=== PATIENT | female | born 1995 | race Caucasian/White ===

== ENCOUNTER 2018-08-12 17:12 | Inpatient (IN) | payer OTHER ==
--- NOTE | 2018-08-12 21:13 | HP ---
Admission ROS [facility] Chief Complaint: Seeking admission to Rehab Allergies/Adverse Reactions: Allergies Allergy/AdvReac Type Severity Reaction Status Date / Time Sulfa (Sulfonamide Allergy Verified 08/12/18 20:36 Antibiotics) History of Present Illness: 22 years old female with 9 years of heroin dependence is seeking admission to Rehab. This is her first inpatient admission to Rehab. Patient has medical history of anxiety, Hep. C, depression and bipolar disorder. She denies suicide attempt and suicidal ideation at this time. Patient is on methadone 70mg tablet oral daily with [facility] MMTP. Last day medicated 08/11/2018. Patient is court mandated for 28 days of rehabilitation services by [facility]. Exam Limitations: No Limitations - Ebola screening Have you traveled outside of the country in the last 21 days: No (N) Have you had contact with anyone from an Ebola affected area: No Have you been sick,other than usual withdrawal symptoms: No Do you have a fever: No - Review of Systems Constitutional: No Symptoms Reported EENT: reports: No Symptoms Reported Respiratory: reports: No Symptoms reported Cardiac: reports: No Symptoms Reported GI: reports: No Symptoms Reported : reports: No Symptoms Reported Musculoskeletal: reports: No Symptoms Reported Integumentary: reports: No Symptoms Reported Neuro: reports: No Symptoms reported Endocrine: reports: No Symptoms Reported Hematology: reports: No Symptoms Reported Psychiatric: reports: No Sypmtoms Reported, Orientated x3 Other Systems: Reviewed and Negative Patient History - Patient Medical History Hx Anemia: No Hx Asthma: No Hx Chronic Obstructive Pulmonary Disease (COPD): No Hx Cancer: No Hx Cardiac Disorders: No Hx Congestive Heart Failure: No Hx Hypertension: No Hx Hypercholesterolemia: No Hx Pacemaker: No HX Cerebrovascular Accident: No Hx Seizures: No Hx Dementia: No Hx Diabetes: No Hx Gastrointestinal Disorders: No Hx Liver Disease: No Hx Genitourinary Disorders: No Hx Sexually Transmitted Disorders: No Hx Renal Disease (ESRD): No Hx Thyroid Disease: No Hx Human Immunodeficiency Virus (HIV): No (Negative 2017) Hx Hepatitis C: No Hx Depression: Yes Hx Suicide Attempt: No (Denies suicidal ideation at tis time) Hx Bipolar Disorder: Yes (Not on medication) Hx Schizophrenia: No Other Medical History: Anxiety - Not on medication - Patient Surgical History Past Surgical History: No - PPD History Previous Implant?: Yes Documented Results: Negative w/o proof PPD to be Administered?: Yes - Reproductive History Patient is a Female of Child Bearing Age (11 -55 yrs old): Yes Last Menstrual Period: 05/28/18 Patient : No - Smoking Cessation Smoking history: Current every day smoker Have you smoked in the past 12 months: Yes Aproximately how many cigarettes per day: 20 Hx Chewing Tobacco Use: No Initiated information on smoking cessation: Yes 'Breaking Loose' booklet given: 08/12/18 - Substance & Tx. History Hx Alcohol Use: No Hx Substance Use: Yes Substance Use Type: Cocaine, Heroin Hx Substance Use Treatment: Yes ([facility]) - Substances Abused Heroin Route: Injection Frequency: Daily Amount used: 1 BUNDLE Age of first use: 13 Date of Last Use: 08/10/18 Family Disease History - Family Disease History Family History: Denies Admission Physical Exam [facility] - Vital Signs Vital Signs: Vital Signs - 24 hr 08/12/18 17:28 Temperature 97.7 F Pulse Rate 88 Respiratory 18 Rate Blood Pressure 124/98 - Physical General Appearance: Yes: No Apparent Distress HEENTM: Yes: EOMI, Normal ENT Inspection, Normocephalic, Normal Voice, FILIBERTO Respiratory: Yes: Lungs Clear, Normal Breath Sounds, No Respiratory Distress Neck: Yes: Supple Breast: Yes: Breast Exam Deferred Cardiology: Yes: Regular Rhythm, Regular Rate Abdominal: Yes: Normal Bowel Sounds Genitourinary: Yes: Within Normal Limits Back: Yes: Normal Inspection Musculoskeletal: Yes: Within Normal Limits Extremities: Yes: Normal Inspection Neurological: Yes: corsetier II-XII NML intact, Alert, Normal Mood/Affect Integumentary: Yes: Warm Lymphatic: Yes: Within Normal Limits - Diagnostic (1) Heroin dependence Current Visit: Yes Status: Chronic (2) Nicotine dependence Current Visit: Yes Status: Chronic Qualifiers: Nicotine product type: cigarettes Substance use status: uncomplicated Qualified Code(s): F17.210 - Nicotine dependence, cigarettes, uncomplicated (3) Anxiety Current Visit: Yes Status: Chronic (4) Depression Current Visit: Yes Status: Acute Qualifiers: Depression Type: unspecified Qualified Code(s): F32.9 - Major depressive disorder, single episode, unspecified (5) Hep C w/o coma, chronic Current Visit: Yes Status: Chronic Cleared for Admission [facility] - Detox or Rehab [facility] Level of Care: Observation Bed Claeared for Rehab Admission: Yes [facility] Breath Alcohol Content Breath Alcohol Content: 0 Urine Pregancy Test - Result Urine Test Results: Negative- NO Line Present Urine Drug Screen - Results Drug Screen Negative: No Urine Drug Screen Results: FAHAD-Cocaine, MTD-Methadone Inpatient Rehab Admission - Initial Determination Are CD services needed?: Yes Free of communicable disease: Yes Not in need of hospitalization: Yes - Rehab Admission Criteria Previous failed treatment: Yes Poor recovery environment: Yes Comorbidities: Yes Lacks judgement: No Patient is meeting Inpatient Rehab admission criteria:: Yes
[2018-08-12] MEDS ORDERED: LOPERAMIDE HCL 2 MG CAPSULE PO PRN (21:22)
[2018-08-12] MEDS ORDERED: P-EPHED 60MG/TRIPROLIDI 2.5MG TABLET PO PRN (21:22)
[2018-08-12] MEDS ORDERED: ACETAMINOPHEN 325 MG TABLET (FP) PO PRN (21:22)
[2018-08-12] MEDS ORDERED: guaiFENesin/D-METHORPHAN HB 10 ML UNIT-DOSE CUPS PO PRN (21:22)
[2018-08-12] MEDS ORDERED: MAGNESIUM CITRATE 300 ML BOTTLE PO PRN (21:22)
[2018-08-12] MEDS ORDERED: MAG HYDROX/AL HYDROX/SIMETH 30 ML UNIT-DOSE CUP PO PRN (21:22)
[2018-08-12] MEDS: THIAMINE HCL 100 MG TABLET (FP) PO SCH (22:29)
[2018-08-13 01:07] LABS: URINE APPEARANCE TURBID; URINE BILIRUBIN NEGATIVE (<2.0 mg/dL); URINE COLOR YELLOW; URINE GLUCOSE (UA) NEGATIVE (NEGATIVE); URINE KETONE NEGATIVE (NEGATIVE); URINE LEUK ESTERASE NEGATIVE (NEGATIVE); URINE NITRITE NEGATIVE (NEGATIVE); URINE PROTEIN NEGATIVE (NEGATIVE)
[2018-08-13] MEDS ORDERED: METHADONE HCL 10 MG TABLET PO SCH (08:00)
[2018-08-13] MEDS ORDERED: METHADONE HCL 10 MG TABLET ONE (08:51)
[2018-08-13] MEDS ORDERED: METHADONE HCL 40 MG DISPERSABLE TABLET ONE (08:51)
[2018-08-13] MEDS: METHADONE 40 MG, METHADONE 30 MG PO SCH (08:57)
[2018-08-13] MEDS: NICOTINE 14 MG/24 HOURS TOPICAL PATCH TD SCH (09:00)
[2018-08-13] MEDS: PRENATAL VITAMINS W/ FOLIC ACID TABLET (FP) PO SCH (09:00)
--- NOTE | 2018-08-13 09:23 | EKG ---
Test Reason : Blood Pressure : / mmHG Vent. Rate : 054 BPM Atrial Rate : 054 BPM P-R Int : 116 ms QRS Dur : 088 ms QT Int : 452 ms P-R-T Axes : 010 064 060 degrees QTc Int : 428 ms SINUS BRADYCARDIA OTHERWISE NORMAL ECG NO PREVIOUS ECGS AVAILABLE Confirmed by DEVORA SEBASTIAN, TROY ([id number]) on 08/13/2018 9:23:03 AM Referred By: Confirmed By:TROY LOZOYA MD
[2018-08-13 10:38] LABS: HEMATOCRIT 41.5 % (32.4-45.2); HEMOGLOBIN 13.3 GM/dL (10.7-15.3); MCH 27.7 pg (25.7-33.7); MCHC 32.1 g/dl (32.0-36.0); MEAN CELL VOLUME 86.2 fl (80-96); MEAN PLT VOLUME 9.2 fl (7.5-11.1); PLATELET COUNT 273 K/MM3 (134-434); RBC 4.82 M/mm3 (3.60-5.2); RDW 14.2 % (11.6-15.6); WHITE BLOOD COUNT 5.9 K/mm3 (4.0-10.0)
[2018-08-13 10:41] LABS: ALBUMIN 3.8 g/dl (3.4-5.0); ALK PHOS 64 U/L (45-117); ANION GAP 5 MMOL/L (8-16); BILIRUBIN,TOTAL 0.5 mg/dL (0.2-1); BLOOD UREA NITROGEN 15 mg/dL (7-18); CALCIUM 9.4 mg/dL (8.5-10.1); CHLORIDE 105 mmol/L (98-107); CO2 31 mmol/L (21-32); CREATININE 0.9 mg/dL (0.55-1.3); GLUCOSE,RANDOM 77 mg/dL (74-106); POTASSIUM 4.5 mmol/L (3.5-5.1); SGOT/AST 19 U/L (15-37); SGPT/ALT 16 U/L (13-61); SODIUM 141 mmol/L (136-145)
[2018-08-13] MEDS: THIAMINE HCL 100 MG TABLET (FP) PO SCH (21:34)
[2018-08-13] MEDS: IBUPROFEN 400 MG TABLET (FP) PO PRN (21:35)
[2018-08-13] MEDS: MELATONIN 5 MG TABLETS PO PRN (22:07)
[2018-08-14] MEDS ORDERED: METHADONE HCL 10 MG TABLET ONE (06:31)
[2018-08-14] MEDS ORDERED: METHADONE HCL 40 MG DISPERSABLE TABLET ONE (06:31)
[2018-08-14] MEDS: METHADONE 40 MG, METHADONE 30 MG PO SCH (06:32)
[2018-08-14] MEDS: NICOTINE 14 MG/24 HOURS TOPICAL PATCH TD SCH (10:04)
[2018-08-14] MEDS: PRENATAL VITAMINS W/ FOLIC ACID TABLET (FP) PO SCH (10:04)
[2018-08-14] MEDS: IBUPROFEN 400 MG TABLET (FP) PO PRN (10:05)
--- NOTE | 2018-08-14 10:43 | HP ---
Psychiatrist Admission - Data Date of interview: 08/14/18 Admission source: Court mandated Identifying data: This si the first admission to [address] [place] [address] for this 22 years old single female childless,resides with boyfriend,supported by boyfriend. Medical History: Hep C. Psychiatric History: Patient reports first contact with psychiatrist in to address anxiety,depressed mood when her parents got .She was started psychotherpay on and off.Patient was placed on medications in her yearly while being in outpatient drug rehabilitation program.She was on Vistaril, Neurontin ,Seroquel,Trazodone.No psychiatric hospitalizations,no suicidal attempts reported.No psychiatric OPD care ,obtains psychotropic medications from her Family Dr:Trazodone 50 mg po hs,Neurontin 400 mg po bid,Seroquel 50 mg po hs. Physical/Sexual Abuse/Trauma History: denies Vital Signs: Vital Signs - 24 hr 08/14/18 08/14/18 08/14/18 00:30 03:30 07:24 Temperature 97.4 F L Pulse Rate 59 L Respiratory 18 18 16 Rate Blood Pressure 104/67 Allergies/Adverse Reactions: Allergies Allergy/AdvReac Type Severity Reaction Status Date / Time Sulfa (Sulfonamide Allergy Verified 08/12/18 20:36 Antibiotics) Date of last physical exam: 08/12/18 Concur with the findings of this exam: Yes - Substance Abuse/Tx History Hx Alcohol Use: Yes (socially) Hx Substance Use: Yes (heroin since 16 yo(IV),MMTP 70 mg,cocaine since 17 yo) Substance Use Type: Cocaine, Heroin Hx Substance Use Treatment: Yes (this is her first inpatient rehab) Mental Status Exam - Mental Status Exam Alert and Oriented to: Time, Place, Person Cognitive Function: Grossly Intact Patient Appearance: Well Groomed Mood: Sad, Anxious Affect: Mood Congruent, Labile Patient Behavior: Cooperative Speech Pattern: Clear Voice Loudness: Normal Thought Process: Goal Oriented Thought Disorder: Not Present Hallucinations: Denies Suicidal Ideation: Denies Homicidal Ideation: Denies Insight/Judgement: Fair Sleep: Fair Appetite: Good Muscle strength/Tone: Normal Gait/Station: Normal Psychiatric Findings - Problem List ([place] 1, 2,3) (1) Hep C w/o coma, chronic Current Visit: Yes Status: Chronic (2) Heroin dependence Current Visit: Yes Status: Chronic (3) Nicotine dependence Current Visit: Yes Status: Chronic Qualifiers: Nicotine product type: cigarettes Substance use status: uncomplicated Qualified Code(s): F17.210 - Nicotine dependence, cigarettes, uncomplicated (4) Cocaine dependence Current Visit: Yes Status: Chronic (5) Substance induced mood disorder Current Visit: Yes Status: Acute - Initial Treatment Plan Initial Treatment Plan: Restart current medications as per plan.Will monitor progress.
[2018-08-14] MEDS: GABAPENTIN 400 MG CAPSULE (FP) PO SCH ×2 (11:49→21:35)
[2018-08-14] MEDS: hydrOXYzine PAMOATE 50 MG CAPSULE (FP) PO PRN (14:12)
[2018-08-14] MEDS: THIAMINE HCL 100 MG TABLET (FP) PO SCH (21:34)
[2018-08-14] MEDS: QUEtiapine FUMARATE 50 MG TABLET PO SCH (21:35)
[2018-08-15] MEDS ORDERED: METHADONE HCL 40 MG DISPERSABLE TABLET ONE (02:45)
[2018-08-15] MEDS ORDERED: METHADONE HCL 10 MG TABLET ONE (02:45)
[2018-08-15] MEDS: METHADONE 40 MG, METHADONE 30 MG PO SCH (06:43)
[2018-08-15] MEDS: NICOTINE 14 MG/24 HOURS TOPICAL PATCH TD SCH (09:55)
[2018-08-15] MEDS: PRENATAL VITAMINS W/ FOLIC ACID TABLET (FP) PO SCH (09:56)
[2018-08-15] MEDS: GABAPENTIN 400 MG CAPSULE (FP) PO SCH ×2 (09:56→21:29)
[2018-08-15] MEDS: hydrOXYzine PAMOATE 50 MG CAPSULE (FP) PO PRN ×2 (14:27→20:05)
[2018-08-15] MEDS: QUEtiapine FUMARATE 50 MG TABLET PO SCH (21:29)
[2018-08-15] MEDS: THIAMINE HCL 100 MG TABLET (FP) PO SCH (21:30)
[2018-08-16] MEDS ORDERED: METHADONE HCL 40 MG DISPERSABLE TABLET ONE (03:10)
[2018-08-16] MEDS ORDERED: METHADONE HCL 10 MG TABLET ONE (03:10)
[2018-08-16] MEDS: METHADONE 40 MG, METHADONE 30 MG PO SCH (06:57)
[2018-08-16] MEDS: hydrOXYzine PAMOATE 50 MG CAPSULE (FP) PO PRN ×3 (07:49→19:41)
[2018-08-16] MEDS: NICOTINE 14 MG/24 HOURS TOPICAL PATCH TD SCH (09:55)
[2018-08-16] MEDS: PRENATAL VITAMINS W/ FOLIC ACID TABLET (FP) PO SCH (09:55)
[2018-08-16] MEDS: GABAPENTIN 400 MG CAPSULE (FP) PO SCH ×2 (09:55→21:24)
[2018-08-16] MEDS: QUEtiapine FUMARATE 50 MG TABLET PO SCH (21:24)
[2018-08-16] MEDS: THIAMINE HCL 100 MG TABLET (FP) PO SCH (21:24)
[2018-08-17] MEDS ORDERED: METHADONE HCL 10 MG TABLET ONE (03:12)
[2018-08-17] MEDS ORDERED: METHADONE HCL 40 MG DISPERSABLE TABLET ONE (03:12)
[2018-08-17] MEDS: METHADONE 40 MG, METHADONE 30 MG PO SCH (07:13)
[2018-08-17] MEDS: hydrOXYzine PAMOATE 50 MG CAPSULE (FP) PO PRN ×3 (08:33→20:28)
[2018-08-17] MEDS: GABAPENTIN 400 MG CAPSULE (FP) PO SCH ×2 (09:44→21:40)
[2018-08-17] MEDS: NICOTINE 14 MG/24 HOURS TOPICAL PATCH TD SCH (09:44)
[2018-08-17] MEDS: PRENATAL VITAMINS W/ FOLIC ACID TABLET (FP) PO SCH (09:44)
[2018-08-17] MEDS ORDERED: COLLOIDAL OATMEAL 1 BAR EACH TP PRN (16:06)
[2018-08-17] MEDS: QUEtiapine FUMARATE 50 MG TABLET PO SCH (21:40)
[2018-08-17] MEDS: THIAMINE HCL 100 MG TABLET (FP) PO SCH (21:40)
[2018-08-18] MEDS ORDERED: METHADONE HCL 40 MG DISPERSABLE TABLET ONE (05:52)
[2018-08-18] MEDS ORDERED: METHADONE HCL 10 MG TABLET ONE (05:52)
[2018-08-18] MEDS: METHADONE 40 MG, METHADONE 30 MG PO SCH (06:12)
[2018-08-18] MEDS: hydrOXYzine PAMOATE 50 MG CAPSULE (FP) PO PRN ×3 (07:20→19:59)
[2018-08-18] MEDS: GABAPENTIN 400 MG CAPSULE (FP) PO SCH ×2 (09:50→21:30)
[2018-08-18] MEDS: NICOTINE 14 MG/24 HOURS TOPICAL PATCH TD SCH (09:50)
[2018-08-18] MEDS: PRENATAL VITAMINS W/ FOLIC ACID TABLET (FP) PO SCH (09:51)
[2018-08-18] MEDS: MENTHOL/PHENOL 1 EACH UD MM PRN ×2 (12:34→17:40)
[2018-08-18] MEDS: IBUPROFEN 400 MG TABLET (FP) PO PRN (19:00)
[2018-08-18] MEDS: QUEtiapine FUMARATE 50 MG TABLET PO SCH (21:29)
[2018-08-18] MEDS: THIAMINE HCL 100 MG TABLET (FP) PO SCH (21:29)
[2018-08-18] MEDS: MELATONIN 5 MG TABLETS PO PRN (21:30)
[2018-08-19] MEDS ORDERED: METHADONE HCL 40 MG DISPERSABLE TABLET ONE (03:15)
[2018-08-19] MEDS ORDERED: METHADONE HCL 10 MG TABLET ONE (03:15)
[2018-08-19] MEDS: METHADONE 40 MG, METHADONE 30 MG PO SCH (06:23)
[2018-08-19] MEDS: GABAPENTIN 400 MG CAPSULE (FP) PO SCH ×2 (10:27→21:13)
[2018-08-19] MEDS: NICOTINE 14 MG/24 HOURS TOPICAL PATCH TD SCH (10:27)
[2018-08-19] MEDS: PRENATAL VITAMINS W/ FOLIC ACID TABLET (FP) PO SCH (10:27)
[2018-08-19] MEDS: hydrOXYzine PAMOATE 50 MG CAPSULE (FP) PO PRN ×3 (10:28→19:07)
[2018-08-19] MEDS: IBUPROFEN 400 MG TABLET (FP) PO PRN (17:53)
[2018-08-19] MEDS: MELATONIN 5 MG TABLETS PO PRN (21:13)
[2018-08-19] MEDS: QUEtiapine FUMARATE 50 MG TABLET PO SCH (21:13)
[2018-08-19] MEDS: THIAMINE HCL 100 MG TABLET (FP) PO SCH (21:13)
[2018-08-20] MEDS ORDERED: METHADONE HCL 10 MG TABLET ONE (03:22)
[2018-08-20] MEDS ORDERED: METHADONE HCL 40 MG DISPERSABLE TABLET ONE (03:23)
[2018-08-20] MEDS: METHADONE 40 MG, METHADONE 30 MG PO SCH (06:08)
[2018-08-20] MEDS: hydrOXYzine PAMOATE 50 MG CAPSULE (FP) PO PRN ×3 (07:44→17:59)
[2018-08-20] MEDS: PRENATAL VITAMINS W/ FOLIC ACID TABLET (FP) PO SCH (10:42)
[2018-08-20] MEDS: NICOTINE 14 MG/24 HOURS TOPICAL PATCH TD SCH (10:42)
[2018-08-20] MEDS: GABAPENTIN 400 MG CAPSULE (FP) PO SCH ×2 (10:42→21:20)
[2018-08-20] MEDS: NICOTINE POLACRILEX 2 MG GUM BUC PRN ×2 (13:32→21:23)
[2018-08-20] MEDS: MENTHOL/PHENOL 1 EACH UD MM PRN (18:00)
[2018-08-20] MEDS: QUEtiapine FUMARATE 50 MG TABLET PO SCH (21:20)
[2018-08-20] MEDS: THIAMINE HCL 100 MG TABLET (FP) PO SCH (21:20)
[2018-08-20] MEDS: MELATONIN 5 MG TABLETS PO PRN (21:20)
[2018-08-21] MEDS ORDERED: METHADONE HCL 10 MG TABLET ONE (06:22)
[2018-08-21] MEDS ORDERED: METHADONE HCL 40 MG DISPERSABLE TABLET ONE (06:22)
[2018-08-21] MEDS: METHADONE 40 MG, METHADONE 30 MG PO SCH (06:24)
[2018-08-21] MEDS: hydrOXYzine PAMOATE 50 MG CAPSULE (FP) PO PRN ×3 (08:32→18:54)
[2018-08-21] MEDS: NICOTINE 14 MG/24 HOURS TOPICAL PATCH TD SCH (10:15)
[2018-08-21] MEDS: GABAPENTIN 400 MG CAPSULE (FP) PO SCH ×2 (10:15→21:22)
[2018-08-21] MEDS: PRENATAL VITAMINS W/ FOLIC ACID TABLET (FP) PO SCH (10:15)
[2018-08-21] MEDS: IBUPROFEN 400 MG TABLET (FP) PO PRN (14:30)
[2018-08-21] MEDS ORDERED: BENZOYL PEROXIDE 5% 60 GM GEL..GRAM. TP ONE (15:10)
--- NOTE | 2018-08-21 15:13 | PN ---
[facility] Progress Note Note: PT C/O FACIAL RASH. Vital Signs - 24 hr 08/20/18 08/21/18 08/21/18 22:16 00:30 03:30 Temperature 97.7 F Pulse Rate 89 Respiratory 18 16 16 Rate Blood Pressure 108/72 08/21/18 07:32 Temperature 97.5 F L Pulse Rate 72 Respiratory 16 Rate Blood Pressure 109/74 Laboratory Tests 08/13/18 08/13/18 08/13/18 00:05 07:00 07:00 WBC 5.9 RBC 4.82 Hgb 13.3 Hct 41.5 MCV 86.2 MCH 27.7 MCHC 32.1 RDW 14.2 Plt Count 273 MPV 9.2 Sodium 141 Potassium 4.5 Chloride 105 Carbon Dioxide 31 Anion Gap 5 L BUN 15 Creatinine 0.9 Creat Clearance w eGFR > 60 Random Glucose 77 Calcium 9.4 Total Bilirubin 0.5 AST 19 ALT 16 Alkaline Phosphatase 64 Total Protein 8.0 Albumin 3.8 Urine Color Yellow Urine Appearance Turbid Urine pH 8.0 Ur Specific [place] 1.019 Urine Protein Negative Urine Glucose (UA) Negative Urine Ketones Negative Urine Blood Negative Urine Nitrite Negative Urine Bilirubin Negative Urine Urobilinogen 2.0 H Ur Leukocyte Esterase Negative RPR Titer HIV 1&2 Antibody Screen HIV P24 Antigen 08/13/18 08/13/18 07:00 07:00 WBC RBC Hgb Hct MCV MCH MCHC RDW Plt Count MPV Sodium Potassium Chloride Carbon Dioxide Anion Gap BUN Creatinine Creat Clearance w eGFR Random Glucose Calcium Total Bilirubin AST ALT Alkaline Phosphatase Total Protein Albumin Urine Color Urine Appearance Urine pH Ur Specific [place] Urine Protein Urine Glucose (UA) Urine Ketones Urine Blood Urine Nitrite Urine Bilirubin Urine Urobilinogen Ur Leukocyte Esterase RPR Titer Nonreactive HIV 1&2 Antibody Screen Negative HIV P24 Antigen Negative FACIAL SKIN:RED PAPULES ON FACE NAD PLAN:BENZOYL PEROXIDE 5% APPLY DIRECTED.
[2018-08-21] MEDS: THIAMINE HCL 100 MG TABLET (FP) PO SCH (21:22)
[2018-08-21] MEDS: QUEtiapine FUMARATE 50 MG TABLET PO SCH (21:22)
[2018-08-22] MEDS ORDERED: METHADONE HCL 10 MG TABLET ONE (06:03)
[2018-08-22] MEDS ORDERED: METHADONE HCL 40 MG DISPERSABLE TABLET ONE (06:04)
[2018-08-22] MEDS: METHADONE 40 MG, METHADONE 30 MG PO SCH (06:43)
[2018-08-22] MEDS: NICOTINE 14 MG/24 HOURS TOPICAL PATCH TD SCH (09:32)
[2018-08-22] MEDS: PRENATAL VITAMINS W/ FOLIC ACID TABLET (FP) PO SCH (09:32)
[2018-08-22] MEDS: GABAPENTIN 400 MG CAPSULE (FP) PO SCH ×2 (09:32→21:26)
[2018-08-22] MEDS: hydrOXYzine PAMOATE 50 MG CAPSULE (FP) PO PRN ×3 (09:33→21:26)
[2018-08-22] MEDS: BENZOYL PEROXIDE 5% 60 GM GEL..GRAM. TP SCH (13:52)
[2018-08-22] MEDS ORDERED: PT OWN MED DRAWER 7, Y5N ONE (13:54)
[2018-08-22] MEDS: THIAMINE HCL 100 MG TABLET (FP) PO SCH (21:26)
[2018-08-22] MEDS: QUEtiapine FUMARATE 50 MG TABLET PO SCH (21:27)
[2018-08-22] MEDS: MELATONIN 5 MG TABLETS PO PRN (21:27)
[2018-08-23] MEDS ORDERED: METHADONE HCL 10 MG TABLET ONE (06:04)
[2018-08-23] MEDS ORDERED: METHADONE HCL 40 MG DISPERSABLE TABLET ONE (06:04)
[2018-08-23] MEDS: METHADONE 40 MG, METHADONE 30 MG PO SCH (06:51)
[2018-08-23] MEDS: hydrOXYzine PAMOATE 50 MG CAPSULE (FP) PO PRN ×2 (08:01→21:21)
[2018-08-23] MEDS: NICOTINE 14 MG/24 HOURS TOPICAL PATCH TD SCH (10:23)
[2018-08-23] MEDS: PRENATAL VITAMINS W/ FOLIC ACID TABLET (FP) PO SCH (10:23)
[2018-08-23] MEDS: GABAPENTIN 400 MG CAPSULE (FP) PO SCH ×2 (10:23→21:20)
[2018-08-23] MEDS: BENZOYL PEROXIDE 5% 60 GM GEL..GRAM. TP SCH (10:24)
[2018-08-23] MEDS: NICOTINE POLACRILEX 2 MG GUM BUC PRN (10:25)
[2018-08-23] MEDS: THIAMINE HCL 100 MG TABLET (FP) PO SCH (21:20)
[2018-08-23] MEDS: QUEtiapine FUMARATE 50 MG TABLET PO SCH (21:20)
[2018-08-23] MEDS: MELATONIN 5 MG TABLETS PO PRN (21:20)
[2018-08-24] MEDS ORDERED: METHADONE HCL 10 MG TABLET ONE (06:01)
[2018-08-24] MEDS ORDERED: METHADONE HCL 40 MG DISPERSABLE TABLET ONE (06:02)
[2018-08-24] MEDS: METHADONE 40 MG, METHADONE 30 MG PO SCH (06:28)
[2018-08-24] MEDS: PRENATAL VITAMINS W/ FOLIC ACID TABLET (FP) PO SCH (10:43)
[2018-08-24] MEDS: GABAPENTIN 400 MG CAPSULE (FP) PO SCH ×2 (10:43→21:17)
[2018-08-24] MEDS: NICOTINE 14 MG/24 HOURS TOPICAL PATCH TD SCH (10:43)
[2018-08-24] MEDS ORDERED: PT OWN MED DRAWER 7, Y5N ONE (10:45)
[2018-08-24] MEDS: hydrOXYzine PAMOATE 50 MG CAPSULE (FP) PO PRN ×2 (10:46→17:57)
[2018-08-24] MEDS: BENZOYL PEROXIDE 5% 60 GM GEL..GRAM. TP SCH (10:48)
[2018-08-24] MEDS: IBUPROFEN 400 MG TABLET (FP) PO PRN (10:49)
[2018-08-24] MEDS: THIAMINE HCL 100 MG TABLET (FP) PO SCH (21:17)
[2018-08-24] MEDS: MELATONIN 5 MG TABLETS PO PRN (21:17)
[2018-08-24] MEDS: QUEtiapine FUMARATE 50 MG TABLET PO SCH (21:17)
[2018-08-25] MEDS ORDERED: METHADONE HCL 40 MG DISPERSABLE TABLET ONE (02:57)
[2018-08-25] MEDS ORDERED: METHADONE HCL 10 MG TABLET ONE (02:57)
[2018-08-25] MEDS: METHADONE 40 MG, METHADONE 30 MG PO SCH (06:05)
[2018-08-25] MEDS: GABAPENTIN 400 MG CAPSULE (FP) PO SCH ×2 (10:05→21:09)
[2018-08-25] MEDS: PRENATAL VITAMINS W/ FOLIC ACID TABLET (FP) PO SCH (10:05)
[2018-08-25] MEDS: hydrOXYzine PAMOATE 50 MG CAPSULE (FP) PO PRN ×3 (10:05→21:10)
[2018-08-25] MEDS: BENZOYL PEROXIDE 5% 60 GM GEL..GRAM. TP SCH (10:06)
[2018-08-25] MEDS: NICOTINE 14 MG/24 HOURS TOPICAL PATCH TD SCH (10:06)
[2018-08-25] MEDS: QUEtiapine FUMARATE 50 MG TABLET PO SCH (21:09)
[2018-08-25] MEDS: THIAMINE HCL 100 MG TABLET (FP) PO SCH (21:09)
[2018-08-26] MEDS ORDERED: METHADONE HCL 40 MG DISPERSABLE TABLET ONE (05:00)
[2018-08-26] MEDS ORDERED: METHADONE HCL 10 MG TABLET ONE (05:00)
[2018-08-26] MEDS: METHADONE 40 MG, METHADONE 30 MG PO SCH (06:24)
[2018-08-26] MEDS: hydrOXYzine PAMOATE 50 MG CAPSULE (FP) PO PRN ×3 (08:30→21:06)
[2018-08-26] MEDS: PRENATAL VITAMINS W/ FOLIC ACID TABLET (FP) PO SCH (10:07)
[2018-08-26] MEDS: NICOTINE 14 MG/24 HOURS TOPICAL PATCH TD SCH (10:08)
[2018-08-26] MEDS: GABAPENTIN 400 MG CAPSULE (FP) PO SCH ×2 (10:08→21:06)
[2018-08-26] MEDS: NICOTINE POLACRILEX 2 MG GUM BUC PRN (10:09)
[2018-08-26] MEDS: IBUPROFEN 400 MG TABLET (FP) PO PRN (10:10)
[2018-08-26] MEDS ORDERED: PT OWN MED DRAWER 7, Y5N ONE (10:10)
[2018-08-26] MEDS: BENZOYL PEROXIDE 5% 60 GM GEL..GRAM. TP SCH (10:11)
[2018-08-26] MEDS: MAGNESIUM HYDROX 2400MG/30ML ORAL SUSPENSION 30 ML CUP PO PRN (19:22)
[2018-08-26] MEDS: QUEtiapine FUMARATE 50 MG TABLET PO SCH (21:06)
[2018-08-26] MEDS: MELATONIN 5 MG TABLETS PO PRN (21:06)
[2018-08-26] MEDS: THIAMINE HCL 100 MG TABLET (FP) PO SCH (21:06)
[2018-08-27] MEDS ORDERED: METHADONE HCL 40 MG DISPERSABLE TABLET ONE (03:27)
[2018-08-27] MEDS ORDERED: METHADONE HCL 10 MG TABLET ONE (03:27)
[2018-08-27] MEDS ORDERED: METHADONE HCL 10 MG TABLET PO SCH (06:15)
[2018-08-27] MEDS: METHADONE 40 MG, METHADONE 30 MG PO SCH (06:29)
[2018-08-27] MEDS: NICOTINE 14 MG/24 HOURS TOPICAL PATCH TD SCH (10:04)
[2018-08-27] MEDS: hydrOXYzine PAMOATE 50 MG CAPSULE (FP) PO PRN (10:04)
[2018-08-27] MEDS: PRENATAL VITAMINS W/ FOLIC ACID TABLET (FP) PO SCH (10:04)
[2018-08-27] MEDS: IBUPROFEN 400 MG TABLET (FP) PO PRN (10:05)
[2018-08-27] MEDS: GABAPENTIN 400 MG CAPSULE (FP) PO SCH ×2 (10:05→21:30)
[2018-08-27] MEDS: BENZOYL PEROXIDE 5% 60 GM GEL..GRAM. TP SCH (10:06)
[2018-08-27] MEDS ORDERED: PT OWN MED DRAWER 7, Y5N ONE (10:26)
[2018-08-27] MEDS: THIAMINE HCL 100 MG TABLET (FP) PO SCH (21:29)
[2018-08-27] MEDS: MELATONIN 5 MG TABLETS PO PRN (21:29)
[2018-08-27] MEDS: QUEtiapine FUMARATE 50 MG TABLET PO SCH (21:30)
[2018-08-28] MEDS ORDERED: METHADONE HCL 40 MG DISPERSABLE TABLET ONE (05:56)
[2018-08-28] MEDS ORDERED: METHADONE HCL 10 MG TABLET ONE (05:56)
[2018-08-28] MEDS: METHADONE 40 MG, METHADONE 30 MG PO SCH (06:14)
[2018-08-28] MEDS: hydrOXYzine PAMOATE 50 MG CAPSULE (FP) PO PRN ×3 (08:47→21:23)
[2018-08-28] MEDS: NICOTINE 14 MG/24 HOURS TOPICAL PATCH TD SCH (10:18)
[2018-08-28] MEDS: GABAPENTIN 400 MG CAPSULE (FP) PO SCH ×2 (10:18→21:23)
[2018-08-28] MEDS: PRENATAL VITAMINS W/ FOLIC ACID TABLET (FP) PO SCH (10:18)
[2018-08-28] MEDS: IBUPROFEN 400 MG TABLET (FP) PO PRN (10:19)
[2018-08-28] MEDS: NICOTINE POLACRILEX 2 MG GUM BUC PRN (10:20)
[2018-08-28] MEDS: BENZOYL PEROXIDE 5% 60 GM GEL..GRAM. TP SCH (10:26)
[2018-08-28] MEDS: MAGNESIUM HYDROX 2400MG/30ML ORAL SUSPENSION 30 ML CUP PO PRN (14:14)
[2018-08-28] MEDS: QUEtiapine FUMARATE 50 MG TABLET PO SCH (21:23)
[2018-08-28] MEDS: MELATONIN 5 MG TABLETS PO PRN (21:23)
[2018-08-28] MEDS: THIAMINE HCL 100 MG TABLET (FP) PO SCH (21:23)
[2018-08-29] MEDS ORDERED: METHADONE HCL 10 MG TABLET ONE (03:24)
[2018-08-29] MEDS ORDERED: METHADONE HCL 40 MG DISPERSABLE TABLET ONE (03:24)
[2018-08-29] MEDS: METHADONE 40 MG, METHADONE 30 MG PO SCH (06:50)
[2018-08-29] MEDS: BENZOYL PEROXIDE 5% 60 GM GEL..GRAM. TP SCH (09:49)
[2018-08-29] MEDS: NICOTINE 14 MG/24 HOURS TOPICAL PATCH TD SCH (09:50)
[2018-08-29] MEDS: GABAPENTIN 400 MG CAPSULE (FP) PO SCH ×2 (09:50→21:15)
[2018-08-29] MEDS: PRENATAL VITAMINS W/ FOLIC ACID TABLET (FP) PO SCH (09:50)
[2018-08-29] MEDS: hydrOXYzine PAMOATE 50 MG CAPSULE (FP) PO PRN ×2 (09:51→19:21)
[2018-08-29] MEDS: NICOTINE POLACRILEX 2 MG GUM BUC PRN (09:51)
[2018-08-29] MEDS: THIAMINE HCL 100 MG TABLET (FP) PO SCH (21:15)
[2018-08-29] MEDS: QUEtiapine FUMARATE 50 MG TABLET PO SCH (21:15)
[2018-08-29] MEDS: MELATONIN 5 MG TABLETS PO PRN (21:16)
[2018-08-30] MEDS ORDERED: METHADONE HCL 10 MG TABLET ONE (02:37)
[2018-08-30] MEDS ORDERED: METHADONE HCL 40 MG DISPERSABLE TABLET ONE (02:37)
[2018-08-30] MEDS: METHADONE 40 MG, METHADONE 30 MG PO SCH (06:36)
[2018-08-30] MEDS: hydrOXYzine PAMOATE 50 MG CAPSULE (FP) PO PRN ×3 (08:37→21:30)
[2018-08-30] MEDS: BENZOYL PEROXIDE 5% 60 GM GEL..GRAM. TP SCH (09:51)
[2018-08-30] MEDS: PRENATAL VITAMINS W/ FOLIC ACID TABLET (FP) PO SCH (09:52)
[2018-08-30] MEDS: NICOTINE 14 MG/24 HOURS TOPICAL PATCH TD SCH (09:52)
[2018-08-30] MEDS: GABAPENTIN 400 MG CAPSULE (FP) PO SCH ×2 (09:52→21:29)
[2018-08-30] MEDS: IBUPROFEN 400 MG TABLET (FP) PO PRN (09:53)
[2018-08-30] MEDS: NICOTINE POLACRILEX 2 MG GUM BUC PRN (09:53)
[2018-08-30] MEDS: QUEtiapine FUMARATE 50 MG TABLET PO SCH (21:29)
[2018-08-30] MEDS: THIAMINE HCL 100 MG TABLET (FP) PO SCH (21:29)
[2018-08-30] MEDS: MELATONIN 5 MG TABLETS PO PRN (21:30)
[2018-08-30] MEDS ORDERED: PT OWN MED DRAWER 7, Y5N ONE (22:46)
[2018-08-31] MEDS ORDERED: METHADONE HCL 10 MG TABLET ONE (03:23)
[2018-08-31] MEDS ORDERED: METHADONE HCL 40 MG DISPERSABLE TABLET ONE (03:24)
[2018-08-31] MEDS: METHADONE 40 MG, METHADONE 30 MG PO SCH (06:19)
[2018-08-31] MEDS: NICOTINE 14 MG/24 HOURS TOPICAL PATCH TD SCH (10:08)
[2018-08-31] MEDS: GABAPENTIN 400 MG CAPSULE (FP) PO SCH ×2 (10:08→21:36)
[2018-08-31] MEDS: PRENATAL VITAMINS W/ FOLIC ACID TABLET (FP) PO SCH (10:08)
[2018-08-31] MEDS: hydrOXYzine PAMOATE 50 MG CAPSULE (FP) PO PRN ×3 (10:10→21:37)
[2018-08-31] MEDS: IBUPROFEN 400 MG TABLET (FP) PO PRN (10:10)
[2018-08-31] MEDS: BENZOYL PEROXIDE 5% 60 GM GEL..GRAM. TP SCH (10:51)
[2018-08-31] MEDS: MELATONIN 5 MG TABLETS PO PRN (21:36)
[2018-08-31] MEDS: QUEtiapine FUMARATE 50 MG TABLET PO SCH (21:36)
[2018-08-31] MEDS: THIAMINE HCL 100 MG TABLET (FP) PO SCH (21:36)
[2018-09-01] MEDS ORDERED: METHADONE HCL 10 MG TABLET ONE (05:57)
[2018-09-01] MEDS ORDERED: METHADONE HCL 40 MG DISPERSABLE TABLET ONE (05:58)
[2018-09-01] MEDS: METHADONE 40 MG, METHADONE 30 MG PO SCH (06:20)
[2018-09-01] MEDS: hydrOXYzine PAMOATE 50 MG CAPSULE (FP) PO PRN ×3 (07:14→21:32)
[2018-09-01] MEDS: GABAPENTIN 400 MG CAPSULE (FP) PO SCH ×2 (10:32→21:32)
[2018-09-01] MEDS: PRENATAL VITAMINS W/ FOLIC ACID TABLET (FP) PO SCH (10:32)
[2018-09-01] MEDS: NICOTINE 14 MG/24 HOURS TOPICAL PATCH TD SCH (10:32)
[2018-09-01] MEDS: BENZOYL PEROXIDE 5% 60 GM GEL..GRAM. TP SCH (10:33)
[2018-09-01] MEDS: THIAMINE HCL 100 MG TABLET (FP) PO SCH (21:31)
[2018-09-01] MEDS: QUEtiapine FUMARATE 50 MG TABLET PO SCH (21:32)
[2018-09-02] MEDS ORDERED: METHADONE HCL 10 MG TABLET ONE (06:10)
[2018-09-02] MEDS ORDERED: METHADONE HCL 40 MG DISPERSABLE TABLET ONE (06:10)
[2018-09-02] MEDS: METHADONE 40 MG, METHADONE 30 MG PO SCH (06:36)
[2018-09-02] MEDS: GABAPENTIN 400 MG CAPSULE (FP) PO SCH ×2 (10:17→21:49)
[2018-09-02] MEDS: NICOTINE 14 MG/24 HOURS TOPICAL PATCH TD SCH (10:17)
[2018-09-02] MEDS: BENZOYL PEROXIDE 5% 60 GM GEL..GRAM. TP SCH (10:17)
[2018-09-02] MEDS: NICOTINE POLACRILEX 2 MG GUM BUC PRN (10:18)
[2018-09-02] MEDS: hydrOXYzine PAMOATE 50 MG CAPSULE (FP) PO PRN ×3 (10:18→21:49)
[2018-09-02] MEDS: PRENATAL VITAMINS W/ FOLIC ACID TABLET (FP) PO SCH (10:18)
[2018-09-02] MEDS: QUEtiapine FUMARATE 50 MG TABLET PO SCH (21:49)
[2018-09-02] MEDS: MELATONIN 5 MG TABLETS PO PRN (21:49)
[2018-09-02] MEDS: THIAMINE HCL 100 MG TABLET (FP) PO SCH (21:49)
[2018-09-03] MEDS ORDERED: METHADONE HCL 10 MG TABLET ONE (02:56)
[2018-09-03] MEDS ORDERED: METHADONE HCL 40 MG DISPERSABLE TABLET ONE (02:57)
[2018-09-03] MEDS: METHADONE 40 MG, METHADONE 30 MG PO SCH (06:15)
[2018-09-03] MEDS ORDERED: PT OWN MED DRAWER 7, Y5N ONE (08:32)
[2018-09-03] MEDS: GABAPENTIN 400 MG CAPSULE (FP) PO SCH ×2 (09:42→21:02)
[2018-09-03] MEDS: BENZOYL PEROXIDE 5% 60 GM GEL..GRAM. TP SCH (09:42)
[2018-09-03] MEDS: NICOTINE 14 MG/24 HOURS TOPICAL PATCH TD SCH (09:42)
[2018-09-03] MEDS: PRENATAL VITAMINS W/ FOLIC ACID TABLET (FP) PO SCH (09:42)
[2018-09-03] MEDS: hydrOXYzine PAMOATE 50 MG CAPSULE (FP) PO PRN ×3 (09:43→21:02)
[2018-09-03] MEDS ORDERED: COLLOIDAL OATMEAL 1 BAR EACH TP PRN (13:56)
[2018-09-03] MEDS: MELATONIN 5 MG TABLETS PO PRN (21:02)
[2018-09-03] MEDS: QUEtiapine FUMARATE 50 MG TABLET PO SCH (21:02)
[2018-09-03] MEDS: THIAMINE HCL 100 MG TABLET (FP) PO SCH (21:02)
[2018-09-04] MEDS ORDERED: METHADONE HCL 40 MG DISPERSABLE TABLET ONE (05:46)
[2018-09-04] MEDS ORDERED: METHADONE HCL 10 MG TABLET ONE (05:46)
[2018-09-04] MEDS: METHADONE 40 MG, METHADONE 30 MG PO SCH (06:29)
[2018-09-04] MEDS: GABAPENTIN 400 MG CAPSULE (FP) PO SCH ×2 (09:56→21:31)
[2018-09-04] MEDS: BENZOYL PEROXIDE 5% 60 GM GEL..GRAM. TP SCH (09:56)
[2018-09-04] MEDS: PRENATAL VITAMINS W/ FOLIC ACID TABLET (FP) PO SCH (09:56)
[2018-09-04] MEDS: NICOTINE 14 MG/24 HOURS TOPICAL PATCH TD SCH (09:56)
[2018-09-04] MEDS: hydrOXYzine PAMOATE 50 MG CAPSULE (FP) PO PRN ×3 (09:56→21:31)
[2018-09-04] MEDS: THIAMINE HCL 100 MG TABLET (FP) PO SCH (21:31)
[2018-09-04] MEDS: MELATONIN 5 MG TABLETS PO PRN (21:31)
[2018-09-04] MEDS: QUEtiapine FUMARATE 50 MG TABLET PO SCH (21:31)
[2018-09-05] MEDS ORDERED: METHADONE HCL 10 MG TABLET ONE (05:53)
[2018-09-05] MEDS ORDERED: METHADONE HCL 40 MG DISPERSABLE TABLET ONE (05:53)
[2018-09-05] MEDS: METHADONE 40 MG, METHADONE 30 MG PO SCH (06:26)
[2018-09-05] MEDS: hydrOXYzine PAMOATE 50 MG CAPSULE (FP) PO PRN ×3 (08:55→21:19)
[2018-09-05] MEDS: PRENATAL VITAMINS W/ FOLIC ACID TABLET (FP) PO SCH (09:56)
[2018-09-05] MEDS: GABAPENTIN 400 MG CAPSULE (FP) PO SCH ×2 (09:56→21:19)
[2018-09-05] MEDS: BENZOYL PEROXIDE 5% 60 GM GEL..GRAM. TP SCH (09:56)
[2018-09-05] MEDS: NICOTINE 14 MG/24 HOURS TOPICAL PATCH TD SCH (09:56)
[2018-09-05] MEDS: IBUPROFEN 400 MG TABLET (FP) PO PRN (14:36)
[2018-09-05] MEDS: THIAMINE HCL 100 MG TABLET (FP) PO SCH (21:19)
[2018-09-05] MEDS: QUEtiapine FUMARATE 50 MG TABLET PO SCH (21:20)
[2018-09-06] MEDS ORDERED: METHADONE HCL 40 MG DISPERSABLE TABLET ONE (06:06)
[2018-09-06] MEDS ORDERED: METHADONE HCL 10 MG TABLET ONE (06:06)
[2018-09-06] MEDS: METHADONE 40 MG, METHADONE 30 MG PO SCH (06:44)
[2018-09-06] MEDS: PRENATAL VITAMINS W/ FOLIC ACID TABLET (FP) PO SCH (09:47)
[2018-09-06] MEDS: NICOTINE 14 MG/24 HOURS TOPICAL PATCH TD SCH (09:47)
[2018-09-06] MEDS: hydrOXYzine PAMOATE 50 MG CAPSULE (FP) PO PRN ×2 (09:47→21:57)
[2018-09-06] MEDS: BENZOYL PEROXIDE 5% 60 GM GEL..GRAM. TP SCH (09:47)
[2018-09-06] MEDS: GABAPENTIN 400 MG CAPSULE (FP) PO SCH ×2 (09:47→21:56)
[2018-09-06] MEDS: QUEtiapine FUMARATE 50 MG TABLET PO SCH (21:56)
[2018-09-06] MEDS: THIAMINE HCL 100 MG TABLET (FP) PO SCH (21:56)
[2018-09-07] MEDS ORDERED: METHADONE HCL 10 MG TABLET ONE (05:52)
[2018-09-07] MEDS ORDERED: METHADONE HCL 40 MG DISPERSABLE TABLET ONE (05:53)
[2018-09-07] MEDS: METHADONE 40 MG, METHADONE 30 MG PO SCH (06:30)
[2018-09-07] MEDS: BENZOYL PEROXIDE 5% 60 GM GEL..GRAM. TP SCH (09:57)
[2018-09-07] MEDS: NICOTINE 14 MG/24 HOURS TOPICAL PATCH TD SCH (09:57)
[2018-09-07] MEDS: GABAPENTIN 400 MG CAPSULE (FP) PO SCH ×2 (09:57→21:16)
[2018-09-07] MEDS: hydrOXYzine PAMOATE 50 MG CAPSULE (FP) PO PRN ×2 (09:58→19:41)
[2018-09-07] MEDS: PRENATAL VITAMINS W/ FOLIC ACID TABLET (FP) PO SCH (09:58)
[2018-09-07] MEDS: NICOTINE POLACRILEX 2 MG GUM BUC PRN (09:59)
[2018-09-07] MEDS: QUEtiapine FUMARATE 50 MG TABLET PO SCH (21:16)
[2018-09-07] MEDS: THIAMINE HCL 100 MG TABLET (FP) PO SCH (21:16)
[2018-09-07] MEDS: MELATONIN 5 MG TABLETS PO PRN (21:17)
[2018-09-08] MEDS ORDERED: METHADONE 40 MG, METHADONE 30 MG PO SCH (06:00)
[2018-09-08] MEDS ORDERED: METHADONE HCL 40 MG DISPERSABLE TABLET ONE (06:04)
[2018-09-08] MEDS ORDERED: METHADONE HCL 10 MG TABLET ONE (06:04)
[2018-09-08 06:57] VITALS: BP 107/69; PULSE 73; TEMP 97.4
[2018-09-08] MEDS: GABAPENTIN 400 MG CAPSULE (FP) PO SCH (09:47)
[2018-09-08] MEDS: BENZOYL PEROXIDE 5% 60 GM GEL..GRAM. TP SCH (09:47)
[2018-09-08] MEDS: NICOTINE 14 MG/24 HOURS TOPICAL PATCH TD SCH (09:47)
[2018-09-08] MEDS: PRENATAL VITAMINS W/ FOLIC ACID TABLET (FP) PO SCH (09:47)
[2018-09-08] MEDS: hydrOXYzine PAMOATE 50 MG CAPSULE (FP) PO PRN (09:49)
== END 2018-09-08 10:00 | disposition home or self-care (01) | DRG 772 ==
LOC: YASAS 17:12 → Y3E 20:27
PROVIDERS: ADMIT Psychiatry & Neurology Psychiatry; ATTEND Psychiatry & Neurology Psychiatry
PROC: HZ42ZZZ Group Counseling for Substance Abuse Treatment, Cognitive-Behavioral (ICD-10-PCS; principal; 2018-08-12)
DX: F11.20 Opioid dependence, uncomplicated (principal); F14.20 Cocaine dependence, uncomplicated; F17.210 Nicotine dependence, cigarettes, uncomplicated; F19.24 Other psychoactive substance dependence with psychoactive substance-induced mood disorder; F41.9 Anxiety disorder, unspecified; F32.9 Major depressive disorder, single episode, unspecified; B18.2 Chronic viral hepatitis C; Z88.2 Allergy status to sulfonamides
CPT/HCPCS: 36415; 80053; 81003; 85027; 86593; 87389; 93005; 93010

== ENCOUNTER 2019-02-15 18:58 | Inpatient (IN) | payer OTHER ==
[2019-02-15 23:50] VITALS: BMI 17.6
--- NOTE | 2019-02-16 00:31 | HP ---
CIWA Score - Admission Criteria [facility] Guidelines: Admission for Medically Managed Detox: Requires at least one of the followin. CIWA greater than 12 2. Seizures within the past 24 hours 3. Delirium tremens within the past 24 hours 4. Hallucinations within the past 24 hours 5. Acute intervention needed for co occurring medical disorder 6. Acute intervention needed for co occurring psychiatric disorder 7. Severe withdrawal that cannot be handled at a lower level of care (continued vomiting, continued diarrhea, abnormal vital signs) requiring intravenous medication and/or fluids 8. Admission ROS S - HPI Chief Complaint: Seeking admission to Rehab Allergies/Adverse Reactions: Allergies Allergy/AdvReac Type Severity Reaction Status Date / Time Sulfa (Sulfonamide Allergy Verified 02/15/19 23:44 Antibiotics) History of Present Illness: 23 years old female with a long history of heroin dependence is seeking admission to Rehab. Patient is status post detox while in care home from 02/08/2019 - date. She is court mandated to Rehab. She has medical history of Hep. C, anxiety and depression. Denies suicidal ideation at this time. Exam Limitations: No Limitations - Ebola screening Have you traveled outside of the country in the last 21 days: No (N) Have you had contact with anyone from an Ebola affected area: No Have you been sick,other than usual withdrawal symptoms: No Do you have a fever: No - Review of Systems Constitutional: No Symptoms Reported EENT: reports: No Symptoms Reported Respiratory: reports: No Symptoms reported Cardiac: reports: No Symptoms Reported GI: reports: No Symptoms Reported : reports: No Symptoms Reported Musculoskeletal: reports: No Symptoms Reported Integumentary: reports: No Symptoms Reported Neuro: reports: No Symptoms reported Endocrine: reports: No Symptoms Reported Hematology: reports: No Symptoms Reported Psychiatric: reports: Mood/Affect Appropiate, Orientated x3 Other Systems: Reviewed and Negative Patient History - Patient Medical History Hx Anemia: No Hx Asthma: No Hx Chronic Obstructive Pulmonary Disease (COPD): No Hx Cancer: No Hx Cardiac Disorders: No Hx Congestive Heart Failure: No Hx Hypertension: No Hx Hypercholesterolemia: No Hx Pacemaker: No HX Cerebrovascular Accident: No Hx Seizures: No Hx Dementia: No Hx Diabetes: No Hx Gastrointestinal Disorders: No Hx Liver Disease: No Hx Genitourinary Disorders: No Hx Sexually Transmitted Disorders: No Hx Renal Disease (ESRD): No Hx Thyroid Disease: No Hx Human Immunodeficiency Virus (HIV): No (Negative 2017) Hx Hepatitis C: Yes (Not on medication) Hx Depression: Yes (Not on medicaton) Hx Suicide Attempt: No (Denies suicidal ideation at tis time) Hx Bipolar Disorder: Yes (Not on medication) Hx Schizophrenia: No Other Medical History: Anxiety - Not on medication - Patient Surgical History Past Surgical History: No - PPD History Previous Implant?: Yes Documented Results: Negative w/proof Implanted On Prior [facility] Admission?: Yes Date: 08/14/18 PPD to be Administered?: No - Reproductive History Patient is a Female of Child Bearing Age (11 -55 yrs old): Yes Last Menstrual Period: 01/26/19 Patient : No - Smoking Cessation Smoking history: Current every day smoker Have you smoked in the past 12 months: Yes Aproximately how many cigarettes per day: 20 Hx Chewing Tobacco Use: No Initiated information on smoking cessation: Yes 'Breaking Loose' booklet given: 02/16/19 - Substance & Tx. History Hx Alcohol Use: No Hx Substance Use: Yes Substance Use Type: Heroin Hx Substance Use Treatment: Yes ([facility]) - Substances abused Heroin Substance route: Injection Frequency: Daily Amount used: 2 BUNDLES Age of first use: 13 Date of last use: 02/08/19 Family Disease History - Family Disease History Family History: Denies Admission Physical Exam [facility] - Vital Signs Vital Signs: Vital Signs - 24 hr 02/15/19 23:45 Temperature 98.5 F Pulse Rate 75 Respiratory 18 Rate Blood Pressure 136/78 - Physical General Appearance: Yes: Within Normal Limits HEENTM: Yes: EOMI, Normal ENT Inspection, Normal Voice, FILIBERTO Respiratory: Yes: Lungs Clear, Normal Breath Sounds, No Respiratory Distress Neck: Yes: Supple Breast: Yes: Breast Exam Deferred Cardiology: Yes: Regular Rhythm, Regular Rate Abdominal: Yes: Normal Bowel Sounds, Soft Genitourinary: Yes: Within Normal Limits Back: Yes: Normal Inspection Musculoskeletal: Yes: Within Normal Limits Extremities: Yes: Normal Inspection Neurological: Yes: Alert, Normal Mood/Affect Integumentary: Yes: Within Normal Limits, Warm Lymphatic: Yes: Within Normal Limits - Diagnostic (1) Depression Current Visit: Yes Status: Chronic Qualifiers: Depression Type: unspecified Qualified Code(s): F32.9 - Major depressive disorder, single episode, unspecified (2) Anxiety Current Visit: Yes Status: Chronic (3) Hep C w/o coma, chronic Current Visit: Yes Status: Chronic (4) Heroin dependence Current Visit: Yes Status: Chronic (5) Nicotine dependence Current Visit: Yes Status: Chronic Qualifiers: Nicotine product type: cigarettes Substance use status: uncomplicated Qualified Code(s): F17.210 - Nicotine dependence, cigarettes, uncomplicated Cleared for Admission [facility] - Detox or Rehab [facility] Level of Care: Observation Bed Claeared for Rehab Admission: Yes Breathalyzer - Breathalyzer Breathalyzer: 0 POC Urine test - Test device test lot number: [id number] Expiration date: 06/26/20 - Control test control: Yes - Result Urine Test Results: Negative - NO line present Urine Drug Screen - Test Device Lot number: [id number] Expiration date: 09/25/20 - Control Is test valid?: Yes - Results Drug screen NEGATIVE: No Urine drug screen results: MTD-Methadone, BZO-Benzodiazepines Inpatient Rehab Admission - Rehab Decision to Admit Inpatient rehab admission?: Yes - Initial Determination Are CD services needed?: No Free of communicable disease: Yes Not in need of hospitalization: Yes - Rehab Admission Criteria Previous failed treatment: Yes Poor recovery environment: Yes Comorbidities: Yes Lacks judgement: No Patient is meeting Inpatient Rehab admission criteria:: Yes
[2019-02-16] MEDS ORDERED: IBUPROFEN 400 MG TABLET (FP) PO PRN (00:35)
[2019-02-16] MEDS ORDERED: guaiFENesin 200 MG/10 ML 10 ML UNIT-DOSE CUPS PO PRN (00:35)
[2019-02-16] MEDS ORDERED: NICOTINE POLACRILEX 2 MG GUM BUC PRN (00:35)
[2019-02-16] MEDS ORDERED: hydrOXYzine PAMOATE 25 MG CAPSULE (FP) PO PRN (00:35)
[2019-02-16] MEDS ORDERED: MENTHOL/PHENOL 1 EACH UD MM PRN (00:35)
[2019-02-16] MEDS ORDERED: MAG HYDROX/AL HYDROX/SIMETH 30 ML UNIT-DOSE CUP PO PRN (00:35)
[2019-02-16] MEDS ORDERED: MAGNESIUM HYDROX 2400MG/30ML ORAL SUSPENSION 30 ML CUP PO PRN (00:35)
[2019-02-16] MEDS ORDERED: LOPERAMIDE HCL 2 MG CAPSULE PO PRN (00:35)
[2019-02-16] MEDS ORDERED: MAGNESIUM CITRATE 300 ML BOTTLE PO PRN (00:35)
[2019-02-16] MEDS ORDERED: P-EPHED 60MG/TRIPROLIDI 2.5MG TABLET PO PRN (00:35)
[2019-02-16] MEDS ORDERED: ACETAMINOPHEN 325 MG TABLET (FP) PO PRN (00:35)
[2019-02-16 07:09] VITALS: BP 104/71; PULSE 96; TEMP 97.5
[2019-02-16] MEDS ORDERED: PRENATAL VITAMINS W/ FOLIC ACID TABLET (FP) PO SCH (10:00)
[2019-02-16] MEDS ORDERED: NICOTINE 14 MG/24 HOURS TOPICAL PATCH TD SCH (10:00)
[2019-02-16 12:13] LABS: ALBUMIN 3.7 g/dl (3.4-5.0); ALK PHOS 61 U/L (45-117); ANION GAP 7 MMOL/L (8-16); BILIRUBIN,TOTAL < 0.1 mg/dL (0.2-1); BLOOD UREA NITROGEN 12 mg/dL (7-18); CALCIUM 9.1 mg/dL (8.5-10.1); CHLORIDE 106 mmol/L (98-107); CO2 30 mmol/L (21-32); CREATININE 0.8 mg/dL (0.55-1.3); GLUCOSE,RANDOM 113 mg/dL (74-106); POTASSIUM 4.3 mmol/L (3.5-5.1); SGOT/AST 11 U/L (15-37); SGPT/ALT 16 U/L (13-61); SODIUM 143 mmol/L (136-145); TOT PROT 7.1 g/dl (6.4-8.2)
[2019-02-16 12:15] LABS: HEMATOCRIT 41.8 % (32.4-45.2); HEMOGLOBIN 13.9 GM/dL (10.7-15.3); MCH 28.7 pg (25.7-33.7); MCHC 33.2 g/dl (32.0-36.0); MEAN CELL VOLUME 86.4 fl (80-96); PLATELET COUNT 337 K/MM3 (134-434); RBC 4.83 M/mm3 (3.60-5.2); RDW 14.3 % (11.6-15.6); WHITE BLOOD COUNT 9.6 K/mm3 (4.0-10.0)
--- NOTE | 2019-02-16 18:18 | PN ---
[facility] Progress Note Note: 23 years old female with a long history of heroin dependence admitted to Rehab. Patient states completed detox while incarcerated.(02/08-) States was court mandated to Rehab. PMHx: Hep. MHHx: Anxiety and depression. Denies suicidal ideation. Patient states has personal problems at home and has to leave. Vital Signs - 24 hr 02/15/19 02/16/19 02/16/19 23:45 00:55 03:30 Temperature 98.5 F 97.3 F L Pulse Rate 75 80 Respiratory 18 18 18 Rate Blood Pressure 136/78 107/74 02/16/19 07:07 Temperature 97.5 F L Pulse Rate 96 H Respiratory 18 Rate Blood Pressure 104/71 Laboratory Last Values WBC 9.6 K/mm3 (4.0-10.0) 02/16/19 08:40 RBC 4.83 M/mm3 (3.60-5.2) 02/16/19 08:40 Hgb 13.9 GM/dL (10.7-15.3) 02/16/19 08:40 Hct 41.8 % (32.4-45.2) 02/16/19 08:40 MCV 86.4 fl (80-96) 02/16/19 08:40 MCH 28.7 pg (25.7-33.7) 02/16/19 08:40 MCHC 33.2 g/dl (32.0-36.0) 02/16/19 08:40 RDW 14.3 % (11.6-15.6) 02/16/19 08:40 Plt Count 337 K/MM3 (134-434) D 02/16/19 08:40 MPV 9.0 fl (7.5-11.1) 02/16/19 08:40 Sodium 143 mmol/L (136-145) 02/16/19 08:40 Potassium 4.3 mmol/L (3.5-5.1) 02/16/19 08:40 Chloride 106 mmol/L (98-107) 02/16/19 08:40 Carbon Dioxide 30 mmol/L (21-32) 02/16/19 08:40 Anion Gap 7 MMOL/L (8-16) L 02/16/19 08:40 BUN 12 mg/dL (7-18) 02/16/19 08:40 Creatinine 0.8 mg/dL (0.55-1.3) 02/16/19 08:40 Creat Clearance w eGFR 87.40 (>60) 02/16/19 08:40 Random Glucose 113 mg/dL (74-106) H 02/16/19 08:40 Calcium 9.1 mg/dL (8.5-10.1) 02/16/19 08:40 Total Bilirubin < 0.1 mg/dL (0.2-1) L 02/16/19 08:40 AST 11 U/L (15-37) L 02/16/19 08:40 ALT 16 U/L (13-61) 02/16/19 08:40 Alkaline Phosphatase 61 U/L (45-117) 02/16/19 08:40 Total Protein 7.1 g/dl (6.4-8.2) 02/16/19 08:40 Albumin 3.7 g/dl (3.4-5.0) 02/16/19 08:40 POC Urine HCG, Qual Negative 02/15/19 23:03 RPR Titer Nonreactive (NONREACTIVE) 02/16/19 08:40 Labs reviewed. Discussed overdose risks. Patient declined Narcan kit. Patient is leaving AMA.
[2019-02-16] MEDS ORDERED: MELATONIN 5 MG TABLETS PO PRN (22:00)
[2019-02-16] MEDS ORDERED: THIAMINE HCL 100 MG TABLET (FP) PO SCH (22:00)
== END 2019-02-16 22:38 | disposition left against medical advice (07) | DRG 770 ==
LOC: YASAS 18:58 → Y3E 02-16 00:32
PROVIDERS: ADMIT Surgery; ATTEND Surgery
PROC: HZ43ZZZ Group Counseling for Substance Abuse Treatment, 12-Step (ICD-10-PCS; principal; 2019-02-16)
DX: F11.20 Opioid dependence, uncomplicated (principal); F17.210 Nicotine dependence, cigarettes, uncomplicated; F32.9 Major depressive disorder, single episode, unspecified; F41.9 Anxiety disorder, unspecified; B18.2 Chronic viral hepatitis C; Z88.2 Allergy status to sulfonamides
CPT/HCPCS: 36415; 80053; 81025; 85027; 86593